=== PATIENT | female | born 1990 ===

== ENCOUNTER 2019-05-07 06:22 | Inpatient (IN) | payer OTHER ==
[2019-05-07 07:25] VITALS: BMI 39.4
[2019-05-07] MEDS ORDERED: ONDANSETRON 4 MG/2 ML VIAL IVPUSH PRN (07:49)
[2019-05-07] MEDS ORDERED: morphine SULFATE/PF 0.5 MG/ML (2cc Syringe - QUVA) EP ONE (07:49)
[2019-05-07] MEDS ORDERED: morphine SULFATE/PF 0.5 MG/ML (2cc Syringe - QUVA) ONE (07:55)
[2019-05-07] MEDS ORDERED: ceFAZolin SODIUM 1 GM VIAL ONE (07:56)
[2019-05-07] MEDS ORDERED: CITRIC ACID/SODIUM CITRATE 30 ML UNIT-DOSE CUP PO ONE (08:10)
[2019-05-07] MEDS ORDERED: ELECTROLYTE-148 SOLN 1,000 ML IV SCH (08:15)
--- NOTE | 2019-05-07 08:15 | HP ---
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: Alzheimer's, CVA, Dementia, Migraine, Multiple Sclerosis, Peripheral Neuropathy, Parkinson's, Seizure, Syncope, TIA, Vertigo, Other Cardiovascular: No: AFIB, Aneurysm, Aortic Insufficiency, Aortic Stenosis, CAD, CHF, Deep Vein Thrombosis, HTN, Hyperlipdemia, CA, Mitral Insufficiency, Mitral Stenosis, Murmur, Pulmonary Hypertension, Other Pulmonary: No: Asthma, Bronchitis, Cancer, COPD, O2 Dependent, Pneumonia, Previously Intubated, Pulmonary Embolus, Pulmonary Fibrosis, Sleep Apnea, Other Gastrointestinal: No: Ascites, Cancer, Constipation, Crohn's Disease, Diverticulitis, Diverticulosis, Esophageal Varices, Gastritis, GERD, GI Bleed, Hemorrhoids, Hiatal Hernia, Inflamatory Bowel Disease, Irritable Bowel Disease, Pancreatitis, Peptic Ulcer Disease, Ulcerative Colitis, Other Hepatobiliary: No: Cirrhosis, Cholelithiasis, Cholecystitis, Choledocholithiasis , Hepatitis A, Hepatitis B, Hepatitis C, Other Renal/: No: Renal Failure, Renal Inusuff, BPH, Cancer, Hematuria, Hemodialysis , Neurogenic Bladder, Renal Calculi, UTI, Other Reproductive: No: Ectopic , Endometriosis, Fibroids, PID, Polycystic Ovary Syndrome, Postmenopausal, Other ...: 2 ...Para: 1 ...Term: 1 ...: 0 ...Spon : 0 ...Induced : 0 ...Multiple Gestation: 0 ... Weeks Gestation by Dates: 39 ...EDC by Liz: 05/14/19 Additional OB History: gestational htn Heme/Onc: No: Anemia, B12 Deficiency, Bleeding Disorder, Cancer, Current Chemotherapy, Current Radiation Therapy, Hemochromatosis, Hypercoaguable State, Myeloproliferative Synd, Sickle Cell Disease, Sickle Cell Trait, Thrombocytopenia, Other Infectious Disease: No: AIDS, C-Diff, Herpes Zoster, HIV, MRSA, STD's, Tuberculosis, VREF, Other Psych: No: Addictions, Anxiety, Bipolar, Depression, Panic, Psychosis, Schizophrenia, Other Musculoskeletal: No: Bursitis, Chronic low back pain, Hemiparesis, Hemiplegia, Osteoarthritis, Paraplegia, Other Rheumatology: No: Fibromyalgia, Gout, Lupus, Rheumatoid Arthritis, Sarcoidosis, Vasculitis, Other ENT: No: Allergic Rhinitis, Sinusitis, Other Endocrine: No: Randall's Disease, Robson's Disease, Diabetes Insipidus, Diabetes Mellitus, Hyperparathyroidism, Hyperthyroidism, Hypothyroidism, Osteopenia, SIADH, Other Dermatology: No: Basal Cell, Cellulitis, Eczema, Melanoma, Psoriasis, Squamous Cell, Other - Past Surgical History Past Surgical History: Yes: Hx Myomectomy: No Hx Transabdominal Cerclage: No - Advance Directives Advance Directives: Yes: Living Will - Smoking History Smoking history: Never smoked Have you smoked in the past 12 months: No - Alcohol/Substance Use Hx Alcohol Use: No History of Substance Use: reports: None - Social History Usual Living Arrangement: Yes: With Spouse ADL: Independent History of Recent Travel: No Home Medications - Allergies Allergies/Adverse Reactions: Allergies Allergy/AdvReac Type Severity Reaction Status Date / Time No Known Allergies Allergy Verified 05/07/19 07:25 - Home Medications Home Medications: Ambulatory Orders Labetalol HCl [Normodyne -] 200 mg PO BID 05/07/19 Vits96/Iron Fum/Folic [ Tablet] 1 tab PO DAILY 05/07/19 Family Disease History - Family Disease History Family History: Denies Review of Systems - Review of Systems Constitutional: reports: No Symptoms Eyes: reports: No Symptoms HENT: reports: No Symptoms Neck: reports: No Symptoms Cardiovascular: reports: No Symptoms Respiratory: reports: No Symptoms Gastrointestinal: reports: No Symptoms Genitourinary: reports: No Symptoms Breasts: reports: No Symptoms Reported Musculoskeletal: reports: No Symptoms Integumentary: reports: No Symptoms Neurological: reports: No Symptoms Endocrine: reports: No Symptoms Hematology/Lymphatic: reports: No Symptoms Psychiatric: reports: No Symptoms Pain Intensity: 0 Physical Exam - Maternity Vital Signs: Vital Signs Temperature 98.0 F 05/07/19 06:22 Pulse Rate 83 05/07/19 06:22 Respiratory Rate 18 05/07/19 06:22 Blood Pressure 128/63 05/07/19 06:22 O2 Sat by Pulse Oximetry (%) Constitutional: Yes: Well Nourished, No Distress, Calm Eyes: Yes: WNL, Conjunctiva Clear, EOM Intact HENT: Yes: WNL, Atraumatic, Normocephalic Neck: Yes: WNL, Supple, Trachea Midline Cardiovascular: Yes: WNL, Regular Rate and Rhythm Lungs: Clear to auscultation Breast(s): Yes: WNL - Abdominal Exam/OB Fundal Height: 42 Number of Fetuses: Single Presentation: Oblique Contractions: Yes Regularity: Irritability Intensity: Unaware Monitor Mode: External Heart Rate Location: [facility] Category: I Accelerations: Uniform Decelerations: None - Vaginal Exam/OB Vaginal Bleediing: No Speculum Exam: No Amniotic Membrane Status: Intact Presentation: Transverse/Shoulder Station: -3 - Physical Exam Musculoskeletal: Yes: WNL Extremities: Yes: WNL Edema: Yes Edema: LUE: 1+, RUE: 1+, LLE: 1+, RLE: 1+ Integumentary: Yes: WNL Deep Tendon Reflex Grade: Normal +2 ...Motor Strength: WNL Psychiatric: Yes: WNL, Alert, Oriented Hemorrhage Risk Assessment - Risk Factors Risk Score: 1 Risk Level: Medium Risk Assessment/Plan for repeat lt c s
[2019-05-07] MEDS ORDERED: hydrALAZINE HCL 20 MG/ML VIAL ONE (08:38)
[2019-05-07] MEDS ORDERED: OXYTOCIN 10 UNITS/ML VIAL ONE (08:42)
[2019-05-07] MEDS ORDERED: METOPROLOL TARTRATE 5 MG/5 ML VIAL ONE (08:46)
[2019-05-07] MEDS ORDERED: OXYTOCIN 20 UNITS in 0.9% NS 20 UNIT/1,000 ML INFUS.BAG IV ONE ×2 (08:59→11:31)
--- NOTE | 2019-05-07 09:53 | OP ---
Operative Note - Note: Operative Date: 05/07/19 Pre-Operative Diagnosis: repeat lt cs Operation: repeat lt c s Findings: no adhesions Post-Operative Diagnosis: Same as Pre-op Surgeon: Hipolito Sharma Direct Support Professional Home Health: Chevy Felix Anesthesiologist/CAMP ADVISOR: Luis Alberto Juarez Anesthesia: Spinal Specimens Removed: none Estimated Blood Loss (mls): 700 Operative Report Dictated: Yes
[2019-05-07] MEDS ORDERED: IBUPROFEN 600 MG TABLET (FP) PO PRN (09:59)
[2019-05-07] MEDS ORDERED: METHYLERGONOVINE MALEATE 0.2 MG/1 ML AMP IM PRN (09:59)
[2019-05-07] MEDS ORDERED: D5W-LR W/ 20 UNITS OXYTOCIN 20 UNIT/1,000 ML INFUS.BAG IV SCH (10:00)
[2019-05-07] MEDS ORDERED: NIFEdipine E.R. 30 MG TABLET (FP) PO PRN (10:05)
[2019-05-07] MEDS ORDERED: IBUPROFEN 800 MG/8 ML IJ IVPB ONE (10:30)
[2019-05-07] MEDS: IBUPROFEN 800 MG/8 ML IJ IVPB PRN (10:33)
--- NOTE | 2019-05-07 11:10 | OP ---
DATE OF OPERATION: 05/07/2019 PREOPERATIVE DIAGNOSIS: Repeat low transverse section in oblique lie and chronic high blood pressure, taking labetalol 200 mg twice a day, POSTOPERATIVE DIAGNOSIS: Repeat low transverse section in oblique lie and chronic high blood pressure, taking labetalol 200 mg twice a day, cord around the neck x1, oblique lie, delivered by vertex presentation. PROCEDURE: Repeat low transverse section. SURGEON: Hipolito Mcgowan MD AUTO AIR CONDITIONING APPRENTICE: MANAN Macdonald ANESTHESIOLOGIST: Luis Alberto Juarez MD INDICATIONS: This is a 28-year-old female patient 39 weeks , history of chronic high blood pressure, taking labetalol 200 mg twice a day. The patients baby has been in breech presentation until recently, still about transverse lie. She was taken to the OR for repeat low transverse section. DESCRIPTION OF PROCEDURE: Patients blood pressure was normal before the , and in the OR before the spinal, patient was nervous, so, patients blood pressure went up, but spinal was given and the blood pressure medication was given, and the IV push was given, and blood pressure came down. So, patient did well. So, patient was placed on the operating table in supine position after the spinal anesthesia was obtained. Then, patients abdomen and pelvis were prepped and draped in the usual sterile manner. Following same, a Pfannenstiel incision was made through the skin and subcutaneous tissue until the fascia was nicked in the midline. The fascia was extended bilaterally. Intraperitoneal cavity was entered. New bladder flap was created. Low transverse segment uterus was entered. Baby was delivered from vertex presentation following oblique lie. Cord around the neck x1 was seen. Baby was handed over to finisher map and chart after umbilical cord doubly clamped and cut. Cord blood gas was obtained. Placenta was removed. Uterus closed in single layer, first with interlocking Vicryl sutures. Good hemostasis. Both gutters cleaned. Both ovaries, fallopian tubes, and uterus within normal limits. No complication, no fibroid was seen, and the patient tolerated procedure well. New bladder flap was closed. Good hemostasis. Patient tolerated the procedure well, and the peritoneum was closed, fascia was closed, skin was closed. Transferred to recovery room in stable condition. Blood loss about 700 mL and draining clear urine. HIPOLITO MCGOWAN MD [id number]
[2019-05-07] MEDS: LABETALOL HCL 200 MG TABLET (FP) PO SCH (22:06)
[2019-05-08] MEDS: IBUPROFEN 800 MG/8 ML IJ IVPB PRN (05:09)
[2019-05-08 07:23] LABS: BASO % 0.1 % (0-2.0); EOS % 0.2 % (0-4.5); HEMATOCRIT 27.6 % (32.4-45.2); HEMOGLOBIN 9.1 GM/dL (10.7-15.3); LYMPH % 13.1 % (8-40); MCH 27.4 pg (25.7-33.7); MCHC 32.8 g/dl (32.0-36.0); MEAN CELL VOLUME 83.7 fl (80-96); MEAN PLT VOLUME 10.1 fl (7.5-11.1); MONO % 7.4 % (3.8-10.2); NEUT % 79.2 % (42.8-82.8); RDW 15.1 % (11.6-15.6)
[2019-05-08 08:13] LABS: PLATELET COUNT 148 K/MM3 (134-434)
--- NOTE | 2019-05-08 09:03 | PN ---
Progress Note (short form) - Note Progress Note: Post op day#1.S/P C section under spinal anesthesia with duramorph uneventful.Patient stable and haslittle pain for which she is on medication.No any anesthesia related problem.Patient Dc from the anesthesia care.
[2019-05-08] MEDS: ENOXAPARIN NA (PORCINE) 40 MG/0.4 ML DISP.SYRIN SQ SCH (09:51)
[2019-05-08] MEDS: LABETALOL HCL 200 MG TABLET (FP) PO SCH ×2 (09:53→21:50)
[2019-05-08] MEDS ORDERED: BISACODYL 10 MG SUPP.RECT RC PRN (09:59)
[2019-05-08] MEDS ORDERED: DIPHTH,PERTUSS(ACELL),TET 0.5 ML DISP.SYRIN IM ONE (10:00)
[2019-05-08] MEDS: oxyCODONE HCL 5 MG TABLET PO PRN ×2 (14:12→20:20)
[2019-05-08] MEDS: ACETAMINOPHEN 325 MG TABLET (FP) PO PRN ×2 (14:12→20:20)
[2019-05-08] MEDS: SIMETHICONE 80 MG TAB.CHEW (FP) PO PRN ×2 (14:13→20:20)
[2019-05-09] MEDS: oxyCODONE HCL 5 MG TABLET PO PRN ×4 (04:18→23:54)
[2019-05-09] MEDS: ACETAMINOPHEN 325 MG TABLET (FP) PO PRN ×4 (04:18→23:55)
[2019-05-09] MEDS: SIMETHICONE 80 MG TAB.CHEW (FP) PO PRN ×2 (10:14→17:21)
[2019-05-09] MEDS: LABETALOL HCL 200 MG TABLET (FP) PO SCH ×2 (10:16→21:31)
[2019-05-09] MEDS: ENOXAPARIN NA (PORCINE) 40 MG/0.4 ML DISP.SYRIN SQ SCH (10:18)
--- NOTE | 2019-05-09 12:31 | PN ---
Post Progress Note Post Day: 2 Type of Delivery: Repeat C/S Vital Signs: Vital Signs Temperature 98.6 F 05/09/19 06:02 Pulse Rate 92 H 05/09/19 06:02 Respiratory Rate 20 05/09/19 06:02 Blood Pressure 134/66 05/09/19 06:02 O2 Sat by Pulse Oximetry (%) 100 05/08/19 09:00 Breast Exam: Yes: Soft Uterus: Yes: Fundus Firm, Fundus below umbilicus Incision: Yes: Dressing dry and intact, Sutures intact Abdomen/GI: Yes: Abdomen soft, Passing flatus, Tolerating PO, Other Lochia: Yes: Alba Lochia, amount: Small Extremities: Yes: Calves non-tender Perineum: Yes: Intact Activity: Ambulating - Labs Labs: CBC WBC 11.0 K/mm3 (4.0-10.0) H 05/08/19 06:37 RBC 3.30 M/mm3 (3.60-5.2) L 05/08/19 06:37 Hgb 9.1 GM/dL (10.7-15.3) L 05/08/19 06:37 Hct 27.6 % (32.4-45.2) L 05/08/19 06:37 MCV 83.7 fl (80-96) 05/08/19 06:37 MCH 27.4 pg (25.7-33.7) 05/08/19 06:37 MCHC 32.8 g/dl (32.0-36.0) 05/08/19 06:37 RDW 15.1 % (11.6-15.6) 05/08/19 06:37 Plt Count 148 K/MM3 (134-434) 05/08/19 06:37 MPV 10.1 fl (7.5-11.1) 05/08/19 06:37 Absolute Neuts (auto) 8.7 K/mm3 (1.5-8.0) H 05/08/19 06:37 Neutrophils % 79.2 % (42.8-82.8) 05/08/19 06:37 Lymphocytes % 13.1 % (8-40) 05/08/19 06:37 Monocytes % 7.4 % (3.8-10.2) 05/08/19 06:37 Eosinophils % 0.2 % (0-4.5) 05/08/19 06:37 Basophils % 0.1 % (0-2.0) 05/08/19 06:37 Nucleated RBC % 0 % (0-0) 05/08/19 06:37 Other Findings, Remarks: no problems, ambulating well , dc pt home tomorrow Assessment/Plan dc pt home tomorrow
[2019-05-10 07:40] LABS: BASO % 0.5 % (0-2.0); EOS % 1.9 % (0-4.5); HEMATOCRIT 26.1 % (32.4-45.2); HEMOGLOBIN 8.5 GM/dL (10.7-15.3); LYMPH % 22.2 % (8-40); MCH 27.8 pg (25.7-33.7); MCHC 32.7 g/dl (32.0-36.0); MEAN CELL VOLUME 84.9 fl (80-96); MEAN PLT VOLUME 9.9 fl (7.5-11.1); MONO % 9.3 % (3.8-10.2); NEUT % 66.1 % (42.8-82.8); RBC 3.07 M/mm3 (3.60-5.2); RDW 15.2 % (11.6-15.6); WHITE BLOOD COUNT 8.3 K/mm3 (4.0-10.0)
[2019-05-10 08:37] LABS: PLATELET COUNT 167 K/MM3 (134-434)
[2019-05-10] MEDS: LABETALOL HCL 200 MG TABLET (FP) PO SCH (09:36)
[2019-05-10] MEDS: ENOXAPARIN NA (PORCINE) 40 MG/0.4 ML DISP.SYRIN SQ SCH (09:36)
[2019-05-10] MEDS: SIMETHICONE 80 MG TAB.CHEW (FP) PO PRN (09:36)
[2019-05-10] MEDS: ACETAMINOPHEN 325 MG TABLET (FP) PO PRN (09:36)
[2019-05-10 09:50] VITALS: BP 135/80; PULSE 96; TEMP 98.7
--- NOTE | 2019-05-13 16:52 | PATH ---
Surgical Pathology Report Patient Name: JENNIFER AVALOS [facility]. Rec. #: [id number] /Age/Gender: 1990 (Age: 28) / F Account: [id number] Location: [facility] OBS/GREEN ENERGY MARKETING ANALYST Taken: 05/07/2019 Received: 05/07/2019 Reported: 05/13/2019 Physicians: Hipolito Sharma MD Specimen(s) Received PLACENTA Clinical History , 2017, 39 weeks Final Diagnosis PLACENTA: THIRD TRIMESTER PLACENTA. TRIVASCULAR CORD. MEMBRANES WITH NO DIAGNOSTIC ABNORMALITIES. Electronically Signed Willy Redd M.D. Gross Description The specimen is received fresh labeled placenta and is a 532 gram, 16.0 x 15.0 x 3.2 cm. placenta with attached membranes and umbilical cord. The attached membranes are araujo, translucent with focal opacities and display focal circumarginate insertion. The umbilical cord measures 53 cm. in length and averages 1.2 cm. in diameter. The cord inserts eccentrically, 3.5 cm. to the nearest margin. No true knots or strictures are identified. Cut surface of the umbilical cord reveals 3 vessels. The surface is seaman-blue with minimal fibrin deposition and appropriate caliber vessels. The maternal surface is red-brown with focal defects. Sectioning reveals red-brown, spongy parenchyma. No lesions are identified. Time Piece Repairer sections are submitted in three cassettes as follows: 1- membrane rolls and umbilical cord; 2-3- full thickness sections of placenta. /05/12/2019 [facility]05/12/2019
== END 2019-05-10 12:25 | disposition home or self-care (01) | DRG 788 ==
LOC: JLDR 06:22 → J3W 12:00
PROVIDERS: ADMIT Obstetrics & Gynecology; ATTEND Obstetrics & Gynecology
PROC: 10D00Z1 Extraction of Products of Conception, Low, Open Approach (ICD-10-PCS; principal; 2019-05-07)
DX: O34.211 Maternal care for low transverse scar from previous cesarean delivery (principal); O32.2XX0 Maternal care for transverse and oblique lie, not applicable or unspecified; O69.81X0 Labor and delivery complicated by cord around neck, without compression, not applicable or unspecified; O16.4 Unspecified maternal hypertension, complicating childbirth; Z3A.39 39 weeks gestation of pregnancy; Z37.0 Single live birth
CPT/HCPCS: 36415; 85025; 87389; 88307-TC; 90715

== ENCOUNTER 2022-12-11 18:25 | Inpatient (IN) | payer BC, OTHER ==
[2022-12-11 20:01] VITALS: BMI 34.3
[2022-12-11] MEDS ORDERED: BETAMET ACET/BETAMET NA PH 30 MG/5 ML VIAL ONE (20:20)
[2022-12-11] MEDS ORDERED: LABETALOL HCL 100 MG TABLET (FP) ONE (20:21)
[2022-12-11] MEDS ORDERED: NIFEdipine E.R. 30 MG TABLET PO ONE (20:21)
[2022-12-11] MEDS ORDERED: AMPICILLIN - 2 GM in SODIUM CHLORIDE 100 ML IVPB ONE (20:38)
[2022-12-11] MEDS ORDERED: BETAMET ACET/BETAMET NA PH 30 MG/5 ML VIAL IM ONE (20:39)
[2022-12-11] MEDS ORDERED: MAGNESIUM 4GM/H20 - 4 GM/100 ML IVPB IVPB SCH (20:45)
[2022-12-11] MEDS ORDERED: LACTATED RINGERS SOLUTION 1,000 ML/1,000 ML INFUS.BAG IV SCH (21:00)
[2022-12-11] MEDS: LABETALOL HCL 200 MG TABLET (FP) PO SCH (21:00)
[2022-12-11 21:15] LABS: RETICULOCYTES 2.48 % (0.5-1.5)
[2022-12-11] MEDS ORDERED: AMPICILLIN SODIUM 2 GM VIAL ONE (21:15)
[2022-12-11 21:16] LABS: BASO % 0.3 % (0-2.0); EOS % 0.7 % (0-4.5); HEMATOCRIT 34.1 % (32.4-45.2); LYMPH % 22.7 % (8-40); MCH 26.2 pg (25.7-33.7); MCHC 32.1 g/dl (32.0-36.0); MEAN CELL VOLUME 81.5 fl (80-96); MEAN PLT VOLUME 10.5 fl (7.5-11.1); MONO % 6.7 % (3.8-10.2); NEUT % 69.6 % (42.8-82.8); PLATELET COUNT 163 10^3/uL (134-434); RBC 4.18 M/mm3 (3.60-5.2); RDW 13.7 % (11.6-15.6)
[2022-12-11 21:22] LABS: INR 0.97 (0.83-1.09); PROTHROMBIN TIME (PATIENT) 11.2 SEC (9.7-13.0)
[2022-12-11 21:25] LABS: ACTIVATED PTT 26.7 SECONDS (25.2-36.5)
[2022-12-11] MEDS ORDERED: MAGNESIUM 4GM/H20 - 4 GM/100 ML IVPB IVPB ONE (21:36)
[2022-12-11] MEDS ORDERED: MAGNESIUM SULFATE 20GM/500ML - 20 GM/500 ML INFUS.BAG ONE (21:36)
[2022-12-11 21:40] LABS: BLOOD UREA NITROGEN 10.9 mg/dL (7-18)
[2022-12-11 21:43] LABS: CREATININE 0.7 mg/dL (0.55-1.3); URIC ACID 3.2 mg/dL (2.6-7.2)
[2022-12-11] MEDS: MAGNESIUM SULFATE 20GM/500ML - 20 GM/500 ML INFUS.BAG IV SCH (22:30)
[2022-12-11 22:45] LABS: HIV INTERPRETATION NEGATIVE (NEGATIVE)
[2022-12-12] MEDS ORDERED: AMPICILLIN SODIUM 1 GM VIAL ONE ×4 (00:33→15:59)
[2022-12-12] MEDS: AMPICILLIN - 1 GM in SODIUM CHLORIDE 100 ML IVPB SCH ×2 (00:45→04:45)
[2022-12-12] MEDS ORDERED: LABETALOL HCL 100 MG TABLET (FP) ONE ×3 (05:45→21:49)
[2022-12-12] MEDS: LABETALOL HCL 200 MG TABLET (FP) PO SCH ×3 (05:59→21:55)
[2022-12-12] MEDS ORDERED: MAGNESIUM SULFATE 20GM/500ML - 20 GM/500 ML INFUS.BAG ONE ×2 (08:34→17:47)
[2022-12-12] MEDS: MAGNESIUM SULFATE 20GM/500ML - 20 GM/500 ML INFUS.BAG IV SCH ×2 (08:49→18:00)
[2022-12-12] MEDS ORDERED: NIFEdipine E.R. 30 MG TABLET PO SCH ×2 (10:00→22:00)
[2022-12-12] MEDS ORDERED: NIFEdipine E.R. 30 MG TABLET PO ONE ×2 (10:00→21:49)
[2022-12-12] MEDS: AMPICILLIN SODIUM 1 GM VIAL IVPB SCH ×2 (10:09→16:10)
[2022-12-12] MEDS ORDERED: BETAMET ACET/BETAMET NA PH 30 MG/5 ML VIAL IM ONE (16:00)
[2022-12-12 17:40] LABS: MAGNESIUM 6.3 mg/dL (1.8-2.4)
[2022-12-12] MEDS ORDERED: ELECTROLYTE-148 SOLN 500 ML IV SCH ×2 (19:30→20:00)
[2022-12-12] MEDS ORDERED: CITRIC ACID/SODIUM CITRATE 30 ML UNIT-DOSE CUP PO ONE (19:30)
[2022-12-12] MEDS ORDERED: FENTANYL CITRATE/PF 50 MCG/ML VIAL ONE (19:36)
[2022-12-12] MEDS ORDERED: ePHEDrine SULFATE 50 MG/1 ML AMPULE ONE (19:38)
[2022-12-12] MEDS ORDERED: LABETALOL HCL 20 MG/4 ML VIAL ONE (20:55)
[2022-12-12] MEDS ORDERED: IBUPROFEN 800 MG/8 ML IJ IVPB PRN (21:41)
[2022-12-12] MEDS ORDERED: METHYLERGONOVINE MALEATE 0.2 MG/1 ML AMP IM PRN (21:41)
[2022-12-12] MEDS ORDERED: SENNOSIDES/DOCUSATE COMBO (SENNA PLUS) TABLET (UD) PO PRN (21:41)
[2022-12-12] MEDS ORDERED: ONDANSETRON 4 MG/2 ML VIAL IVPUSH PRN (21:48)
[2022-12-12] MEDS ORDERED: morphine SULFATE/PF 1 MG/2 ML (2cc Syringe - QUVA) SPIN ONE (21:48)
[2022-12-12] MEDS ORDERED: ACETAMINOPHEN 1000 MG/100 ML BAG IVPB ONE (21:49)
[2022-12-12] MEDS: OXYTOCIN 20 UNITS in 0.9% NS 20 UNIT/1,000 ML INFUS.BAG IV SCH (21:57)
[2022-12-12] MEDS: FERROUS SO4 325 MG TABLET (FP) PO SCH (22:00)
[2022-12-12] MEDS ORDERED: MAGNESIUM SULFATE 20GM/500ML - 20 GM/500 ML INFUS.BAG IV SCH (22:00)
[2022-12-13 03:42] LABS: MAGNESIUM 5.2 mg/dL (1.8-2.4)
[2022-12-13] MEDS ORDERED: OXYTOCIN 20 UNITS in 0.9% NS 20 UNIT/1,000 ML INFUS.BAG IV ONE (03:43)
[2022-12-13] MEDS: OXYTOCIN 20 UNITS in 0.9% NS 20 UNIT/1,000 ML INFUS.BAG IV SCH (03:45)
[2022-12-13] MEDS: LABETALOL HCL 200 MG TABLET (FP) PO SCH ×3 (06:56→21:12)
[2022-12-13] MEDS ORDERED: LABETALOL HCL 100 MG TABLET (FP) ONE (06:59)
[2022-12-13] MEDS ORDERED: oxyCODONE HCL 5 MG TABLET PO PRN ×2 (09:41)
[2022-12-13] MEDS ORDERED: PRENATAL VITAMINS W/ FOLIC ACID TABLET (FP) PO ONE (10:05)
[2022-12-13] MEDS: PRENATAL VITAMINS W/ FOLIC ACID TABLET (FP) PO SCH (10:05)
[2022-12-13] MEDS: FERROUS SO4 325 MG TABLET (FP) PO SCH ×2 (10:05→21:11)
[2022-12-13] MEDS ORDERED: FERROUS SO4 325 MG TABLET (FP) ONE (10:05)
[2022-12-13] MEDS ORDERED: NIFEdipine E.R. 30 MG TABLET PO SCH (10:09)
[2022-12-13 10:59] LABS: BASO % 0.2 % (0-2.0); HEMATOCRIT 28.7 % (32.4-45.2); HEMOGLOBIN 9.4 GM/dL (10.7-15.3); LYMPH % 6.8 % (8-40); MCH 26.6 pg (25.7-33.7); MCHC 32.6 g/dl (32.0-36.0); MEAN CELL VOLUME 81.7 fl (80-96); MEAN PLT VOLUME 10.6 fl (7.5-11.1); MONO % 4.1 % (3.8-10.2); NEUT % 88.9 % (42.8-82.8); PLATELET COUNT 150 10^3/uL (134-434); RBC 3.52 M/mm3 (3.60-5.2); RDW 13.8 % (11.6-15.6); WHITE BLOOD COUNT 16.7 K/mm3 (4.0-10.0)
[2022-12-13 11:29] LABS: ALBUMIN 2.2 g/dl (3.4-5.0); BLOOD UREA NITROGEN 12.1 mg/dL (7-18)
[2022-12-13 11:32] LABS: CREATININE 0.8 mg/dL (0.55-1.3)
[2022-12-13 11:34] LABS: BILIRUBIN,TOTAL 0.2 mg/dL (0.2-1); TOT PROT 5.8 g/dl (6.4-8.2)
[2022-12-13 11:39] LABS: CALCIUM 7.6 mg/dL (8.5-10.1)
[2022-12-13] MEDS ORDERED: BISACODYL 10 MG SUPP.RECT RC PRN (21:41)
[2022-12-13] MEDS: IBUPROFEN 600 MG TABLET (FP) PO PRN (21:53)
[2022-12-13] MEDS: SIMETHICONE 80 MG TAB.CHEW (FP) PO PRN (21:54)
[2022-12-14] MEDS: LABETALOL HCL 200 MG TABLET (FP) PO SCH ×3 (05:30→22:10)
[2022-12-14] MEDS: IBUPROFEN 600 MG TABLET (FP) PO PRN ×2 (09:24→21:35)
[2022-12-14] MEDS: SIMETHICONE 80 MG TAB.CHEW (FP) PO PRN ×3 (09:24→21:36)
[2022-12-14] MEDS: FERROUS SO4 325 MG TABLET (FP) PO SCH ×2 (10:32→21:36)
[2022-12-14] MEDS: PRENATAL VITAMINS W/ FOLIC ACID TABLET (FP) PO SCH (10:32)
[2022-12-14] MEDS: ACETAMINOPHEN 325 MG TABLET (FP) PO PRN ×2 (12:07→18:00)
[2022-12-14] MEDS ORDERED: LABETALOL HCL 200 MG TABLET (FP) PO SCH (13:23)
[2022-12-14] MEDS ORDERED: NIFEdipine 10 MG CAPSULE (FP) PO ONE ×2 (13:30→14:00)
[2022-12-14] MEDS: OXYTOCIN 20 UNITS in 0.9% NS 20 UNIT/1,000 ML INFUS.BAG IV SCH (20:20)
[2022-12-14] MEDS: NIFEdipine E.R. 30 MG TABLET PO SCH (22:11)
[2022-12-15] MEDS: IBUPROFEN 600 MG TABLET (FP) PO PRN (09:07)
[2022-12-15] MEDS: SIMETHICONE 80 MG TAB.CHEW (FP) PO PRN (09:07)
[2022-12-15] MEDS: PRENATAL VITAMINS W/ FOLIC ACID TABLET (FP) PO SCH (10:46)
[2022-12-15] MEDS: FERROUS SO4 325 MG TABLET (FP) PO SCH (10:47)
[2022-12-15] MEDS: LABETALOL HCL 200 MG TABLET (FP) PO SCH (10:47)
[2022-12-15] MEDS: NIFEdipine E.R. 30 MG TABLET PO SCH (10:47)
[2022-12-15 11:03] VITALS: TEMP 99.3
[2022-12-15 12:51] VITALS: RESP 18
[2022-12-15 12:52] VITALS: BP 150/98; PULSE 90
== END 2022-12-15 15:30 | disposition home or self-care (01) | DRG 785 ==
LOC: JLDR 18:25 → J3W 12-13 10:35
PROVIDERS: ADMIT Obstetrics & Gynecology; ATTEND Obstetrics & Gynecology
PROC: 10D00Z1 Extraction of Products of Conception, Low, Open Approach (ICD-10-PCS; principal; 2022-12-12)
PROC: 0UL70ZZ Occlusion of Bilateral Fallopian Tubes, Open Approach (ICD-10-PCS; 2022-12-12)
DX: O11.4 Pre-existing hypertension with pre-eclampsia, complicating childbirth (principal); O60.14X0 Preterm labor third trimester with preterm delivery third trimester, not applicable or unspecified; O34.211 Maternal care for low transverse scar from previous cesarean delivery; Z3A.35 35 weeks gestation of pregnancy; Z37.0 Single live birth; Z30.2 Encounter for sterilization
CPT/HCPCS: 36415; 80048; 80053; 82570; 82977; 83010; 83735; 84156; 84450; 84460; 84550; 85025; 85032; 85045; 85610; 85730; 86780; 86850; 86900; 86901; 87389; 88302-TC; 88307-TC; 96372; C9803-CS; U0003; U0005